=== PATIENT | female | born 1990 | race Two or more races ===

== ENCOUNTER 2020-11-10 12:10 | Emergency (ER) | payer OTHER ==
[~2020-11-10] VITALS: Ht 165.1 cm; Wt 63.0 kg
[2020-11-10] MEDS ORDERED: IBUPROFEN 200 MG TABLET. PO ONE (13:30)
[2020-11-10 13:49] LABS: BASO # 0.1 x10^3/uL (0.0-0.2); BASO % 1 % (0-3); EOS % 0 % (0-3); HEMATOCRIT 28.5 % (36.0-47.0); HEMOGLOBIN 8.7 g/dL (12.0-15.5); LYMPH # 0.8 x10^3/uL (1.0-4.8); LYMPH % 8 % (24-48); MEAN CORPUSCULAR HEMOGLOBIN 18 pg (25-35); MEAN CORPUSCULAR HGB CONC 31 g/dL (31-37); MEAN CORPUSCULAR VOLUME 60 fL (79-100); MONO # 0.3 x10^3/uL (0.0-1.1); MONO % 3 % (0-9); NEUT # 8.6 x10^3/uL (1.8-7.7); NEUT % 88 % (31-73); PLATELET COUNT 227 x10^3/uL (140-400); RED BLOOD COUNT 4.73 x10^6/uL (3.50-5.40); RED CELL DISTRIBUTION WIDTH 20.3 % (11.5-14.5); WHITE BLOOD COUNT 9.7 x10^3/uL (4.0-11.0)
[2020-11-10 14:08] LABS: CALCIUM 8.7 mg/dL (8.5-10.1); CREATININE 0.6 mg/dL (0.6-1.0); GFR 116.6; POTASSIUM 3.8 mmol/L (3.5-5.1)
[2020-11-10 14:17] LABS: ALBUMIN 4.1 g/dL (3.4-5.0); ALBUMIN/GLOBULIN RATIO 1.4 (1.0-1.7); TOTAL BILIRUBIN 0.6 mg/dL (0.2-1.0)
[2020-11-10 14:36] VITALS: BP 131/75
[2020-11-10 14:36] LABS: % LYMPHS 2 % (24-48); % MONOS 3 % (0-10); % SEGS 95 % (35-66); HYPOCHROMIA MOD; MICROCYTOSIS MOD
[2020-11-10 14:37] LABS: ANISOCYTOSIS MOD; PLT ESTIMATE ADEQUATE (ADEQUATE)
--- NOTE | 2020-11-10 14:39 | RAD ---
EXAM: Pelvic ultrasound HISTORY: Heavy vaginal bleeding. COMPARISON: None. FINDINGS: Sonographic evaluation of the pelvis was performed transabdominally and transvaginally. The uterus is anteverted and measures 11.5 x 8.6 x 6.2 cm. The endometrial stripe is thickened, hypoe choic and indistinct measuring 2.8 cm. An intrauterine device is noted along the lower uterine segmen t. No discrete masses are identified. There is no significant free fluid. The right ovary measures 3.7 x 1.8 x 1.6 cm. The left ovary measures 3.1 x 1.4 x 1.2 cm. There is nor mal Doppler flow bilaterally. There are no suspicious lesions. IMPRESSION: 1. Thickened, hypoechoic, indistinct endometrium 2.8 cm. This may represent an isoechoic submucosal f ibroid, or endometrial thickening. Hysteroscopy/tissue sampling is recommended in the setting of abno rmal bleeding. An intrauterine device is in expected position. Electronically signed by: Wan Nation MD (11/10/2020 2:37 PM) [id number]
--- NOTE | 2020-11-10 14:57 | PHYS DOC ---
Past Medical History Past Medical History: Depression Past Surgical History: No Surgical History Smoking Status: Never Smoker Alcohol Use: None General Adult EDM: Chief Complaint: VAGINAL BLEEDING HPI: HPI: Patient is a 30 year old female who presents with lower abdominal cramping, heavy bleeding for the last 3 days. She rates her pain a 5 out of 10. She does have an IUD in place. Her primary care is the one at that put the IUD in. Her primary care is at . She states that her primary care was wanting ultrasound done. She is here today with cramping but she states is gotten better and she states that the bleeding has also slowed. She rates her pain a 5 out of 10. She states she is only gone through 3 pads today. She states she is starting to feel better today. She has a history of depression. She has been taking Tylenol for her pain. Patient denies chest pain, shortness of breath, dizziness, syncope, nausea, vomiting, diarrhea, constipation, fever, urinary symptoms, vaginal discharge or concern for sexually transmitted disease. Review of Systems: Review of Systems: Constitutional: Denies fever or chills. [] Eyes: Denies change in visual acuity. [] HENT: Denies nasal congestion or sore throat. [] Respiratory: Denies cough or shortness of breath. [] Cardiovascular: Denies chest pain or edema. [] GI: + abdominal pain cramping, denies nausea, vomiting, bloody stools or diarrhea. [] : Denies dysuria. + Vaginal bleeding [] Musculoskeletal: Denies back pain or joint pain. [] Integument: Denies rash. [] Neurologic: Denies headache, focal weakness or sensory changes. [] Endocrine: Denies polyuria or polydipsia. [] Lymphatic: Denies swollen glands. [] Psychiatric: Denies depression or anxiety. [] Heart Score: C/O Chest Pain: No Risk Factors: Risk Factors: DM, Current or recent (<one month) smoker, HTN, HLP, family history of CAD, obesity. Risk Scores: Score 0 - 3: 2.5% MACE over next 6 weeks - Discharge Home Score 4 - 6: 20.3% MACE over next 6 weeks - Admit for Clinical Observation Score 7 - 10: 72.7% MACE over next 6 weeks - Early Invasive Strategies Current Medications: Current Medications Medications (Trade) Dose Ordered Sig/Gardenia Start Time Stop Time Status Last Admin Dose Admin Ibuprofen (Motrin) 600 mg 1X ONCE 11/10/20 13:30 11/10/20 13:31 DC 11/10/20 13:38 600 MG Allergies: Allergies: Allergies Coded Allergies Type Severity Reaction Last Updated Verified No Known Drug Allergies 11/10/20 No Physical Exam: PE: Constitutional: Well developed, well nourished, no acute distress, non-toxic appearance. [] HENT: Normocephalic, atraumatic, bilateral external ears normal, oropharynx moist, no oral exudates, nose normal. [] Eyes: PERRLA, EOMI, conjunctiva normal, no discharge. [] Neck: Normal range of motion, no tenderness, supple, no stridor. [] Cardiovascular:Heart rate regular rhythm, no murmur [] Lungs & Thorax: Bilateral breath sounds clear to auscultation [] Abdomen: Bowel sounds normal, soft, no tenderness, no masses, no pulsatile m asses. [] Skin: Warm, dry, no erythema, no rash. [] Back: No tenderness, no CVA tenderness. [] Extremities: No tenderness, no cyanosis, no clubbing, ROM intact, no edema. [] Neurologic: Alert and oriented X 3, normal motor function, normal sensory function, no focal deficits noted. [] Psychologic: Affect normal, judgement normal, mood normal. [] Normal physical exam Current Patient Data: Labs: Laboratory Tests Test 11/10/20 13:36 White Blood Count 9.7 x10^3/uL (4.0-11.0) Red Blood Count 4.73 x10^6/uL (3.50-5.40) Hemoglobin 8.7 g/dL (12.0-15.5) L Hematocrit 28.5 % (36.0-47.0) L Mean Corpuscular Volume 60 fL (79-100) L Mean Corpuscular Hemoglobin 18 pg (25-35) L Mean Corpuscular Hemoglobin Concent 31 g/dL (31-37) Red Cell Distribution Width 20.3 % (11.5-14.5) H Platelet Count 227 x10^3/uL (140-400) Neutrophils (%) (Auto) 88 % (31-73) H Lymphocytes (%) (Auto) 8 % (24-48) L Monocytes (%) (Auto) 3 % (0-9) Eosinophils (%) (Auto) 0 % (0-3) Basophils (%) (Auto) 1 % (0-3) Neutrophils # (Auto) 8.6 x10^3/uL (1.8-7.7) H Lymphocytes # (Auto) 0.8 x10^3/uL (1.0-4.8) L Monocytes # (Auto) 0.3 x10^3/uL (0.0-1.1) Eosinophils # (Auto) 0.0 x10^3/uL (0.0-0.7) Basophils # (Auto) 0.1 x10^3/uL (0.0-0.2) Segmented Neutrophils % 95 % (35-66) H Lymphocytes % 2 % (24-48) L Monocytes % 3 % (0-10) Platelet Estimate Adequate (ADEQUATE) Hypochromasia Mod Anisocytosis Mod Microcytosis Mod Sodium Level 140 mmol/L (136-145) Potassium Level 3.8 mmol/L (3.5-5.1) Chloride Level 108 mmol/L (98-107) H Carbon Dioxide Level 23 mmol/L (21-32) Anion Gap 9 (6-14) Blood Urea Nitrogen 15 mg/dL (7-20) Creatinine 0.6 mg/dL (0.6-1.0) Estimated GFR (Cockcroft-Gault) 116.6 BUN/Creatinine Ratio 25 (6-20) H Glucose Level 116 mg/dL (70-99) H Calcium Level 8.7 mg/dL (8.5-10.1) Total Bilirubin 0.6 mg/dL (0.2-1.0) Aspartate Amino Transferase (AST) 22 U/L (15-37) Alanine Aminotransferase (ALT) 18 U/L (14-59) Alkaline Phosphatase 37 U/L (46-116) L Total Protein 7.0 g/dL (6.4-8.2) Albumin 4.1 g/dL (3.4-5.0) Albumin/Globulin Ratio 1.4 (1.0-1.7) Laboratory Tests 11/10/20 13:36 Laboratory Tests 11/10/20 13:36 Vital Signs: Vital Signs Date Time Temp Pulse Resp B/P (MAP) Pulse Ox O2 Delivery O2 Flow Rate FiO2 11/10/20 12:39 97.8 75 16 111/55 (73) 100 Room Air 97.8 EKG: EKG: [] Radiology/Procedures: Radiology/Procedures: [] Impression: [facility] [address] [place] [address] IMAGING REPORT Signed PATIENT: WICHO PADILLA ACCOUNT: [id number] : 1990 LOCATION: ER AGE: 30 SEX: F EXAM STATUS: PRE ER ORD. PHYSICIAN: CASSIUS CHOUDHARY APRN REASON: heavy vaginal bleeding PROCEDURE: PELVIS COMPLETE EXAM: Pelvic ultrasound HISTORY: Heavy vaginal bleeding. COMPARISON: None. FINDINGS: Sonographic evaluation of the pelvis was performed transabdominally and transvaginally. The uterus is anteverted and measures 11.5 x 8.6 x 6.2 cm. The endometrial stripe is thickened, hypoechoic and indistinct measuring 2.8 cm. An intrauterine device is noted along the lower uterine segment. No discrete masses are identified. There is no significant free fluid. The right ovary measures 3.7 x 1.8 x 1.6 cm. The left ovary measures 3.1 x 1.4 x 1.2 cm. There is normal Doppler flow bilaterally. There are no suspicious lesions. IMPRESSION: 1. Thickened, hypoechoic, indistinct endometrium 2.8 cm. This may represent an isoechoic submucosal fibroid, or endometrial thickening. Hysteroscopy/tissue sampling is recommended in the setting of abnormal bleeding. An intrauterine device is in expected position. Electronically signed by: Wan Nation MD (11/10/2020 2:37 PM) [id number] DICTATED and SIGNED BY: KRISTIAN NATION MD DATE: 11/10/20 [id number] Course & Med Decision Making: Course & Med Decision Making Pertinent Labs and Imaging studies reviewed. (See chart for details) See HPI. Alert and oriented x4. Ambulatory with a steady gait. Speaks in full clear sentences. Abdomen is soft and nontender. Ultrasound shows some possible fibroids. Patient hemoglobin is 8.7. She is asymptomatic of anemia. Skin pink warm and dry. Vital signs are within normal limits. Denies any sexually transmitted disease concerns. [] Dragon Disclaimer: Dragon Disclaimer: This electronic medical record was generated, in whole or in part, using a voice recognition dictation system. Departure Departure Impression: Primary Impression: Vaginal bleeding Additional Impression: Menstrual cramps Disposition: HOME / SELF CARE / HOMELESS Condition: STABLE Referrals: UNKNOWN PCP NAME (PCP) ELA BROOKS Jr, MD Patient Instructions: Anemia, Nonspecific-Brief, Dysmenorrhea, Fibroids, [id number] Additional Instructions: Follow-up with your primary care provider or the director of institutional sales of which I have referred you too. Take a [id number] iron supplement with food daily. Drink plenty of fluids. If you start going through more than 1 pad an hour you need to return to the emergency room or go to where your primary care doctor is. Take ibuprofen for your cramps. CASSIUS CHOUDHARY APRN Nov 10, 2020 14:56
[2020-11-10 15:23] LABS: BILIRUBIN,URINE NEGATIVE (NEG); CLARITY,URINE CLEAR; COLOR,URINE YELLOW; NITRITE,URINE NEGATIVE (NEG); PH,URINE 5.5 (<5.0-8.0); PROTEIN,URINE NEGATIVE (NEG-TRACE); UROBILINOGEN,URINE 0.2 mg/dL (0.2 mg/dL)
[2020-11-10 15:33] LABS: RBC,URINE TNTC /HPF (0-2)
[2020-11-10 15:34] LABS: BACTERIA,URINE FEW /HPF (0-FEW)
== END 2020-11-10 15:43 | disposition home or self-care (01) ==
LOC: ER 12:10
DX: N93.9 Abnormal uterine and vaginal bleeding, unspecified (principal); N94.6 Dysmenorrhea, unspecified
CPT/HCPCS: 36415; 76856; 80053; 81001; 81025; 85007; 85025; 87086; 99284